=== PATIENT | female | born 1965 | race Caucasian/White ===

== ENCOUNTER 2016-08-07 19:56 | Emergency (ER) | payer MEDICAID, OTHER ==
[~2016-08-07] VITALS: Ht 157.5 cm; Wt 62.5 kg
[~2016-08-07 19:56] MED LIST: ALB.5NB20; ALBU8.5H3 INH; AMO500 PO; CETI10CA PO; GUAI473L22 PO; HYDR-3498 PO; IBUP400T22 PO; IBUP800T25 PO; NAPR-260 PO; NPH10OT RIGHT EAR
[2016-08-07 20:00] VITALS: Ht 157.5 cm; Wt 62.5 kg
[2016-08-07] MEDS ORDERED: predniSONE 20 MG TAB PO STA (21:32)
[2016-08-07] MEDS ORDERED: ALBUTEROL 0.083% (NEB) 2.5 MG/3 ML AMP NEB STA (21:32)
--- NOTE | 2016-08-07 21:32 | ERD ---
ER Documentation Chief Complaint Date/Time 08/07/162127 Chief Complaint cold symptoms x 3 days, nasal congestion, runny nose HPI This pleasant 50-year-old female presents to emergency department today with 3 day history of nasal congestion, runny nose, postnasal drip, fever, body aches, and chills and sore throat. Patient reports she has been using over-the- counter cold and flu medication with little relief of symptoms, that she missed work today because of not feeling well. Patient denies any history of allergies , asthma, smoking, or sick contacts. ROS All systems reviewed and are negative except as per history of present illness. Medications Home Meds Active Scripts Prednisone* (Prednisone*) 20 Mg Tab, 40 MG PO DAILY for 4 Days, TAB Prov:AIDA,DAVID 08/07/16 Inhaler, Assist Devices (E-Z SPACER) 1 Each Spacer, 1 EACH MC, #1 Prov:AIDA,DAVID 08/07/16 Albuterol Sulfate* (Ventolin HFA*) 18 Gm Hfa.aer.ad, 2 PUFF INHALATION Q4H, #1 INHALER Prov:AIDA,DAVID 08/07/16 Ibuprofen* (Motrin*) 400 Mg Tab, 400 MG PO Q6H Y for PAIN AND OR ELEVATED TEMP, #30 TAB Prov:KASIE FARR NP 12/24/15 Cetirizine Hcl* (Zyrtec*) 10 Mg Capsule, 10 MG PO DAILY, #30 TAB.CHEW Prov:KASIE FARR NP 12/24/15 Guaifenesin-Codeine Phosphate* (Guaifenesin* AC Cough Syrup) 473 Ml Liquid, 5 ML PO Q4H Y for COUGH, #60 ML Prov:KASIE FARR NP 12/24/15 Albuterol Sulfate* (Proair HFA*) 8.5 Gm Hfa.aer.ad, 2 PUFF INH Q4H Y for WHEEZING AND SOB, #1 INHALER Prov:KASIE FARR NP 12/24/15 Ibuprofen* (Motrin*) 800 Mg Tab, 800 MG PO Q6, #30 TAB Prov:ROMAN LAWRENCE PA-C 06/27/15 Naproxen* (Naprosyn*) 500 Mg Tablet, 500 MG PO BID Y for PAIN AND/OR INFLAMMATION, #10 TAB Prov:FAHEEM RIVERA DO 02/27/15 Hydrocodone Bit-Acetaminophen* ([place]*) 5-325 Mg Tab, 1 TAB PO Q6 Y for PAIN, # 7 TAB Prov:FAHEEM RIVERA DO 02/27/15 Neomycin/Polymyxin/Hydrocort* (Cortisporin* Otic) 10 Ml Susp, 4 DROP RIGHT EAR QID for 7 Days, EA Prov:MARSHAL SUMNER MD 10/13/14 Amoxicillin* (Amoxicillin*) 500 Mg Cap, 500 MG PO TID for 10 Days, CAP Prov:MARSHAL SUMNER MD 10/13/14 Reported Medications Albuterol Sulfate* (Albuterol Sulfate* Neb) 20 Ml Nebu, 2 PUFFS Q 4 HR PRN, 0 Refills 03/27/11 Allergies Allergies: Coded Allergies: No Known Allergy (Unverified , 04/28/12) PMhx/Soc History of Surgery: Yes (C section x2, appendectomy.) Anesthesia Reaction: No Hx Neurological Disorder: No Hx Respiratory Disorders: Yes (Asthma) Hx Cardiac Disorders: No Hx Psychiatric Problems: No Hx Miscellaneous Medical Probl: No Hx Alcohol Use: No Hx Substance Use: No Hx Tobacco Use: No Physical Exam Vitals Vital Signs Date Time Temp Pulse Resp B/P Pulse Ox O2 Delivery O2 Flow Rate FiO2 08/07/16 22:46 98.9 68 18 120/69 96 Room Air 08/07/16 21:55 59 24 96 21 08/07/16 20:00 98.3 77 20 123/70 98 Vitals stable, triage notes reviewed Physical Exam Const: No acute distress Head: Atraumatic Eyes: Normal Conjunctiva, PERRLA, EOMI ENT: Bilateral tympanic membranes translucent, auditory canals are clear, nasal mucosa edematous, turbinates +2, no bleeding points, septum midline, mucosa wet, pharynx pink, injected, tonsils +2, erythemic, no exudate, uvula midline, no shift, rises and falls with pronation.. Neck: Full range of motion..~ No meningismus. Resp: Wheezing with forced expiration, diminished bases Cardio: Regular rate and rhythm, no murmurs, S1, S2, no S3, S4 Abd: Skin: Back: Ext: Neur: Awake and alert Psych: Normal Mood and Affect Results 24 hrs Current Medications Medications (Trade) Dose Ordered Sig/Poli Route PRN Reason Start Time Stop Time Status Last Admin Dose Admin Albuterol (Proventil 0.083% (Neb)) 5 mg ONCE STAT NEB 08/07/16 21:32 08/07/16 21:37 DC 08/07/16 21:57 Prednisone (Prednisone) 60 mg ONCE STAT PO 08/07/16 21:32 08/07/16 21:37 DC 08/07/16 22:29 Ipratropium [place] (Atrovent 0.02% (Neb)) 0.5 mg ONCE ONCE HHN 08/07/16 22:00 08/07/16 22:01 DC 08/07/16 21:57 Procedures/MDM This 50-year-old female presents to the emergency department with a 2 day history of upper respiratory symptoms, cough, runny nose, sore throat. Low suspicion for strep pharyngitis, sinusitis, or pneumonia. Patient given albuterol, Atrovent hand-held nebulized treatment, 60 mg of prednisone while in emergency room will be discharged home with Mykel ROBISONI with spacer pharmacy to provide teaching, 40 mg of prednisone daily 4 days. Increase fluids, increase rest, return to emergency department for shortness of breath, fever, worsening of symptoms. I feel the patient is stable for discharge at this time outpatient management by primary care physician I have discussed results, examination findings, the treatment plan with the patient and family present prior to discharge. Indications for emergent reevaluation, side effects of medication were also discussed. All questions were answered. Patient verbalizes understanding and agrees with plan of care. Departure Diagnosis: Primary Impression: Upper respiratory infection URI type: unspecified viral URI Qualified Code: J06.9 - Viral upper respiratory tract infection Patient Instructions: Uri, Viral W/ Wheezing (Adult) Additional Instructions: Thank you for for coming to [facility] for your care today. Please ask your nurse or provider if you have questions about your care today and do not leave until all your questions have been answered. Please use any medications given as directed and follow-up with your doctor (or the doctor you were referred to) in the next 2-3 days. If you do not have a primary care doctor you may follow up at the [facility] (listed below). You may also use motrin and tylenol as needed for fever and/or pain unless instructed otherwise by your provider or nurse. Indications for more urgent follow-up have been discussed, but you may return to the Emergency Department at ANY time for any worrisome or worsening symptoms. If you have abdominal pain, please know that no test or exam you received is perfect and you should follow up within 8 hours for continued pain. If you had any imaging studies today, such as an X-Ray or CT Scan, these studies will be reviewed later by a radiologist. You will be called if there are important findings that were not identified today, so make sure the contact information you provided at registration is correct. If you received any narcotic pain control medicine today, such as Vicodin, Morphine or Dilaudid, your coordination and judgment may be affected for a number of hours. Please do not drive or operate heavy machinery, and you may want someone to assist you at home. If you were given a prescription for narcotic medication, be aware that it is very addictive- use sparingly and only if necessary. DAVID PARRA August 07, 2016 21:32
[2016-08-07] MEDS ORDERED: IPRATROPIUM (NEB) 0.5 MG/2.5 ML AMP HHN ONE (22:00)
[2016-08-07] MEDS ORDERED: INHA1SPA53 MC (22:33)
[2016-08-07] MEDS ORDERED: ALBU18HF INHALATION (22:33)
[2016-08-07] MEDS ORDERED: PRED20TA PO (22:34)
[2016-08-07 22:46] VITALS: BP 120/69; PULSE 68; RESP 18; TEMP 98.9
== END 2016-08-07 22:46 | disposition home or self-care (01) ==
LOC: FTE 19:56
DX: J06.9 Acute upper respiratory infection, unspecified (principal); J45.909 Unspecified asthma, uncomplicated
CPT/HCPCS: 94664; J7512; Z7502; Z7610

== ENCOUNTER 2017-04-04 10:10 | Emergency (ER) | END 2017-04-04 12:56 | disposition home or self-care (01) ==

== ENCOUNTER 2017-08-20 20:07 | Emergency (ER) | END 2017-08-21 00:40 | disposition home or self-care (01) ==

== ENCOUNTER 2017-09-19 17:48 | Emergency (ER) | END 2017-09-19 20:39 | disposition home or self-care (01) ==

== ENCOUNTER 2018-05-14 18:35 | Emergency (ER) | payer SELFPAY ==
[~2018-05-14] VITALS: Ht 160 cm; Wt 67.9 kg
[~2018-05-14 18:35] MED LIST changes: +ALBU18HF INHALATION; -ALBU8.5H3 INH; +ALBU8.5H8 INH; -AMO500 PO; +AMOX500C2 PO; +BENZ-6 PO; +IBUP-1561 PO; -IBUP400T22 PO; -IBUP800T25 PO; +IBUP800T48 PO; +INHA1SPA53 MC; -NAPR-260 PO; +NAPR-985 PO; +PRED20TA PO
[2018-05-14 20:59] VITALS: Ht 160 cm; Wt 67.9 kg
[2018-05-14] MEDS ORDERED: ACET1TAB40 PO (21:40)
[2018-05-14] MEDS ORDERED: NPH10OT RIGHT EAR (21:40)
[2018-05-14] MEDS ORDERED: IBUP-1542 PO (21:40)
--- NOTE | 2018-05-14 21:42 | ERD ---
ER Documentation Chief Complaint Chief Complaint right ear pain x 1 day HPI 52-year-old female with right ear pain for last day. She may have slight on discharge. She denies cough, congestion, bleeding. ROS All systems reviewed and are negative except as per history of present illness. Medications Home Meds Active Scripts Acetaminophen with Codeine (Acetaminophen-Cod #3 Tablet) 1 Each Tablet, 1 TAB PO Q6H PRN for PAIN, #7 TAB Prov:TANI SARAH MD 05/14/18 Neomycin/Polymyxin/Hydrocort* (Cortisporin* Otic) 10 Ml Susp, 4 DROP RIGHT EAR QID for 7 Days, #1 EA Prov:TANI SARAH MD 05/14/18 Ibuprofen* (Motrin*) 600 Mg Tab, 600 MG PO Q6, #20 TAB Prov:TANI SARAH MD 05/14/18 Naproxen* (Naprosyn*) 500 Mg Tablet, 500 MG PO BID PRN for PAIN AND/OR INFLAMMATION, #30 TAB Prov:ANUSHA CUEVA PA-C 09/19/17 Benzonatate* (Tessalon Perle*) 100 Mg Capsule, 100 MG PO Q8H PRN for COUGH, #30 CAP Prov:OLE GALO PA-C 08/20/17 Cetirizine Hcl* (Zyrtec*) 10 Mg Capsule, 10 MG PO DAILY, #30 TAB.CHEW Prov:OLE GALO-C 08/20/17 Albuterol Sulfate* (Proair HFA*) 8.5 Gm Hfa.aer.ad, 2 PUFF INH Q4H PRN for WHEEZING AND SOB, #1 INHALER Prov:OLE GALO PA-C 08/20/17 Prednisone* (Prednisone*) 20 Mg Tab, 40 MG PO DAILY for 4 Days, TAB Prov:AIDA,DAVID 08/07/16 Inhaler, Assist Devices (E-Z SPACER) 1 Each Spacer, 1 EACH MC, #1 Prov:AIDA,DAVID 08/07/16 Albuterol Sulfate* (Ventolin HFA*) 18 Gm Hfa.aer.ad, 2 PUFF INHALATION Q4H, #1 INHALER Prov:AIDA,DAVID 08/07/16 Ibuprofen* (Motrin*) 400 Mg Tab, 400 MG PO Q6H PRN for PAIN AND OR ELEVATED TEMP, #30 TAB Prov:KASIE FARR NP 12/24/15 Cetirizine Hcl* (Zyrtec*) 10 Mg Capsule, 10 MG PO DAILY, #30 TAB.CHEW Prov:KASIE FARR NP 12/24/15 Guaifenesin-Codeine Phosphate* (Guaifenesin* AC Cough Syrup) 473 Ml Liquid, 5 ML PO Q4H PRN for COUGH, #60 ML Prov:KASIE FARR NP 12/24/15 Albuterol Sulfate* (Proair HFA*) 8.5 Gm Hfa.aer.ad, 2 PUFF INH Q4H PRN for WHEEZING AND SOB, #1 INHALER Prov:KASIE FARR NP 12/24/15 Ibuprofen* (Motrin*) 800 Mg Tab, 800 MG PO Q6, #30 TAB Prov:ROMAN LAWRENCE PA-C 06/27/15 Naproxen* (Naprosyn*) 500 Mg Tablet, 500 MG PO BID PRN for PAIN AND/OR INFLAMMATION, #10 TAB Prov:FAHEEM RIVERA DO 02/27/15 Hydrocodone Bit-Acetaminophen* ([place]*) 5-325 Mg Tab, 1 TAB PO Q6 PRN for PAIN, #7 TAB Prov:FAHEEM RIVERA DO 02/27/15 Neomycin/Polymyxin/Hydrocort* (Cortisporin* Otic) 10 Ml Susp, 4 DROP RIGHT EAR QID for 7 Days, EA Prov:MARSHAL SUMNER MD 10/13/14 Amoxicillin* (Amoxicillin*) 500 Mg Cap, 500 MG PO TID for 10 Days, CAP Prov:MARSHAL SUMNER MD 10/13/14 Reported Medications Albuterol Sulfate* (Albuterol Sulfate* Neb) 20 Ml Nebu, 2 PUFFS Q 4 HR PRN, 0 Refills 03/27/11 Allergies Allergies: Coded Allergies: No Known Allergy (Unverified , 05/14/18) PMhx/Soc History of Surgery: Yes (C section x2, appendectomy.) Anesthesia Reaction: No Hx Neurological Disorder: No Hx Respiratory Disorders: Yes (asthma) Hx Cardiac Disorders: No Hx Psychiatric Problems: No Hx Miscellaneous Medical Probl: No Hx Alcohol Use: Yes (occasionally) Hx Substance Use: No Hx Tobacco Use: No Smoking Status: Never smoker FmHx Family History: No diabetes, No coronary disease, No other Physical Exam Vitals Vital Signs Date Temp Pulse Resp B/P (MAP) Pulse Ox O2 O2 Flow FiO2 Time Delivery Rate 05/14/18 97.6 87 18 120/68 97 20:59 (85) Physical Exam Const: No acute distress Head: Atraumatic Eyes: Normal Conjunctiva ENT: Normal External Ears, Nose and Mouth. Pain with passive range of motion of the right external ear. Decreased diameter of the canal and irritation in the canal and slight discharge. TMs normal. No mastoid tenderness. Neck: Full range of motion. No meningismus. Resp: Clear to auscultation bilaterally Cardio: Regular rate and rhythm, no murmurs Abd: Soft, non tender, non distended. Normal bowel sounds Skin: No petechiae or rashes Back: No midline or flank tenderness Ext: No cyanosis, or edema Neur: Awake and alert Psych: Normal Mood and Affect Results 24 hrs Current Medications Medications Dose Sig/Poli Start Time Status Last (Trade) Ordered Route PRN Stop Time Admin Dose Reason Admin Ibuprofen 600 mg ONCE ONCE 05/14/18 (Motrin) PO 22:00 05/14/18 22:01 Procedures/MDM Patient presents with signs of right external otitis. She has no evidence of mastoiditis, malignant otitis externa. Patient admits to using ear buds which may be the cause. No evidence of perforation or otitis media. She will be treated with ibuprofen, Tylenol 3, Cortisporin, primary care follow-up and return precautions. The patient was stable with no new complaints during the ER course. Clinically, there is no current evidence to suggest meningitis, sepsis, acute abdomen, pneumonia, stroke, acute coronary syndrome, pulmonary embolism, aortic dissection or any other emergent condition appearing to require further evaluation or hospitalization. Patient counseled regarding my diagnostic impression and care plan. Prior to discharge all questions answered. Pt agrees with treatment plan and understands strict return precautions. Pt is instructed to follow up with primary care provider within 24-48 hours. Precautionary instructions provided including instructions to return to the ER if not improving or for any worsening or changing symptoms or concerns. Departure Diagnosis: Primary Impression: Right ear pain Condition: Stable Patient Instructions: External Ear Infection (Adult) Additional Instructions: Cheque otro vez con davila doctor primario en el proximo oconnor or regresa para mas o nueva simptomas. TANI SARAH MD May 14, 2018 21:42
[2018-05-14 21:56] VITALS: BP 130/81; PULSE 79; RESP 19
[2018-05-14] MEDS ORDERED: IBUPROFEN 600 MG TAB PO ONE (22:00)
== END 2018-05-14 21:59 | disposition home or self-care (01) ==
LOC: FTE 18:35
DX: H60.91 Unspecified otitis externa, right ear (principal); J45.909 Unspecified asthma, uncomplicated
CPT/HCPCS: 99282

== ENCOUNTER 2018-07-11 17:48 | Emergency (ER) | payer OTHER ==
[~2018-07-11] VITALS: Wt 68.7 kg
[~2018-07-11 17:48] MED LIST changes: +ACET1TAB40 PO; +IBUP-1542 PO
[2018-07-11 18:28] VITALS: BP 133/83; PULSE 66; RESP 19
[2018-07-11] MEDS ORDERED: ALBU18HF INHALATION (19:10)
[2018-07-11] MEDS ORDERED: DIPH25CA6 PO (19:10)
[2018-07-11] MEDS ORDERED: LORA10CA PO (19:10)
[2018-07-11] MEDS ORDERED: D-ME118S24 PO (19:10)
--- NOTE | 2018-07-11 19:32 | ERD ---
ER Documentation Chief Complaint Chief Complaint cough HPI 52-year-old female with past medical history of asthma presents for cough x2 weeks. Patient states that the cough is dry. She states that she also has some lower rib pain bilaterally with cough. There is no pain without the cough. There is associated runny nose and sneezing. Denies fevers or chills. Denies chest pain or shortness of breath. No modifying factors noted. No treatment tried at home. ROS All systems reviewed and are negative except as per history of present illness. Medications Home Meds Active Scripts Diphenhydramine Hcl (Benadryl) 25 Mg Cap, 25 MG PO Q6H PRN for allergy, #30 CAP Prov:ZONIAKATHERINE 07/11/18 Loratadine* (Claritin*) 10 Mg Capsule, 10 MG PO DAILY PRN for allergy, #30 CAP Prov:BRARKATHERINE 07/11/18 D-Methorphan Hb/P-Epd HCl/Bpm (Sdqhdhyqew-Gnwffmmzqhf-Gp Syr) 118 Ml Syrup, 5 ML PO Q4H PRN for COUGH for 10 Days, #1 BOTTLE Prov:KATHERINE BRAR DO 07/11/18 Albuterol Sulfate* (Ventolin HFA*) 18 Gm Hfa.aer.ad, 2 PUFF INHALATION Q4H PRN for cough/shortness of breath, #1 INHALER Prov:KATHERINE BRAR DO 07/11/18 Acetaminophen with Codeine (Acetaminophen-Cod #3 Tablet) 1 Each Tablet, 1 TAB PO Q6H PRN for PAIN, #7 TAB Prov:TANI SARAH MD 05/14/18 Neomycin/Polymyxin/Hydrocort* (Cortisporin* Otic) 10 Ml Susp, 4 DROP RIGHT EAR QID for 7 Days, #1 EA Prov:TANI SARAH MD 05/14/18 Ibuprofen* (Motrin*) 600 Mg Tab, 600 MG PO Q6, #20 TAB Prov:TANI SARAH MD 05/14/18 Naproxen* (Naprosyn*) 500 Mg Tablet, 500 MG PO BID PRN for PAIN AND/OR INFLAMMATION, #30 TAB Prov:ANUSHA CUEVA PA-C 09/19/17 Benzonatate* (Tessalon Perle*) 100 Mg Capsule, 100 MG PO Q8H PRN for COUGH, #30 CAP Prov:OLE GALO PA-C 08/20/17 Cetirizine Hcl* (Zyrtec*) 10 Mg Capsule, 10 MG PO DAILY, #30 TAB.CHEW Prov:OLE GALO PA-C 08/20/17 Albuterol Sulfate* (Proair HFA*) 8.5 Gm Hfa.aer.ad, 2 PUFF INH Q4H PRN for WHEEZING AND SOB, #1 INHALER Prov:OLE GALO PA-C 08/20/17 Prednisone* (Prednisone*) 20 Mg Tab, 40 MG PO DAILY for 4 Days, TAB Prov:AIDA,DAVID 08/07/16 Inhaler, Assist Devices (E-Z SPACER) 1 Each Spacer, 1 EACH MC, #1 Prov:AIDA,DAVID 08/07/16 Albuterol Sulfate* (Ventolin HFA*) 18 Gm Hfa.aer.ad, 2 PUFF INHALATION Q4H, #1 INHALER Prov:AIDA,DAVID 08/07/16 Ibuprofen* (Motrin*) 400 Mg Tab, 400 MG PO Q6H PRN for PAIN AND OR ELEVATED TEMP, #30 TAB Prov:KASIE FARR NP 12/24/15 Cetirizine Hcl* (Zyrtec*) 10 Mg Capsule, 10 MG PO DAILY, #30 TAB.CHEW Prov:KASIE FARR NP 12/24/15 Guaifenesin-Codeine Phosphate* (Guaifenesin* AC Cough Syrup) 473 Ml Liquid, 5 ML PO Q4H PRN for COUGH, #60 ML Prov:KASIE FARR NP 12/24/15 Albuterol Sulfate* (Proair HFA*) 8.5 Gm Hfa.aer.ad, 2 PUFF INH Q4H PRN for WHEEZING AND SOB, #1 INHALER Prov:KASIE FARR NP 12/24/15 Ibuprofen* (Motrin*) 800 Mg Tab, 800 MG PO Q6, #30 TAB Prov:ROMAN LAWRENCE PA-C 06/27/15 Naproxen* (Naprosyn*) 500 Mg Tablet, 500 MG PO BID PRN for PAIN AND/OR INFLAMMATION, #10 TAB Prov:FAEHEM RIVERA DO 02/27/15 Hydrocodone Bit-Acetaminophen* ([place]*) 5-325 Mg Tab, 1 TAB PO Q6 PRN for PAIN, #7 TAB Prov:FAHEEM RIVERA DO 02/27/15 Neomycin/Polymyxin/Hydrocort* (Cortisporin* Otic) 10 Ml Susp, 4 DROP RIGHT EAR QID for 7 Days, EA Prov:MARSHAL SUMNER MD 10/13/14 Amoxicillin* (Amoxicillin*) 500 Mg Cap, 500 MG PO TID for 10 Days, CAP Prov:MARSHAL SUMNER MD 10/13/14 Reported Medications Albuterol Sulfate* (Albuterol Sulfate* Neb) 20 Ml Nebu, 2 PUFFS Q 4 HR PRN, 0 Refills 03/27/11 Allergies Allergies: Coded Allergies: No Known Allergy (Unverified , 05/14/18) PMhx/Soc History of Surgery: Yes (C section x2, appendectomy.) Anesthesia Reaction: No Hx Neurological Disorder: No Hx Respiratory Disorders: Yes (asthma) Hx Cardiac Disorders: No Hx Psychiatric Problems: No Hx Miscellaneous Medical Probl: No Hx Alcohol Use: Yes (occasionally) Hx Substance Use: No Hx Tobacco Use: No Smoking Status: Never smoker FmHx Family History: No coronary disease Physical Exam Vitals Vital Signs Date Temp Pulse Resp B/P (MAP) Pulse Ox O2 O2 Flow FiO2 Time Delivery Rate 07/11/18 97.6 66 19 133/83 98 18:28 (100) Physical Exam Const: No acute distress Head: Atraumatic Eyes: Normal Conjunctiva ENT: Normal External Ears, bilateral tympanic membrane intact without erythema or bulging noted, nose and Mouth examination normal, no tonsillar swelling or exudate noted Neck: Full range of motion. No meningismus. Resp: Clear to auscultation bilaterally, no wheezing, rales, rhonchi Cardio: Regular rate and rhythm, no murmurs Skin: No petechiae or rashes Ext: No cyanosis, or edema Neur: Awake and alert Psych: Normal Mood and Affect Procedures/MDM Medical Decision Making: Differential diagnosis includes but not limited to upper respiratory infection, pneumonia, sepsis, meningitis, influenza. Patient appeared well on physical examination, nontoxic appearing. Lungs were clear to auscultation bilaterally. There is low suspicion for pneumonia, sepsis, meningitis. Patient likely has an upper respiratory infection, likely viral. Therefore antibiotics not indicated. Discussed symptomatic treatment with patient who agrees with plan. Patient given prescription for supportive medication(s). Patient advised to follow up with PCP in 1-2 days. Patient advised to return to ED for new or worsening symptoms. Patient stable on discharge from the ED. Disclaimer: Inadvertent spelling and grammatical errors are likely due to EHR/dictation software use and do not reflect on the overall quality of patient care. Also, please note that the electronic time recorded on this note does not necessarily reflect the actual time of the patient encounter. Departure Diagnosis: Primary Impression: Cough Condition: Fair Patient Instructions: Cough, Chronic, Uncertain Cause, (Adult) Referrals: [facility] (PCP) Additional Instructions: Call your primary care doctor TOMORROW for an appointment during the next 1-2 days.See the doctor sooner or return here if your condition worsens before your appointment time. KATHERINE BRAR DO Jul 11, 2018 19:32
== END 2018-07-11 19:16 | disposition home or self-care (01) ==
LOC: FTE 17:48
DX: R05 Cough (principal); J45.909 Unspecified asthma, uncomplicated
CPT/HCPCS: 99283